=== PATIENT | female | born 1945 | race Caucasian/White ===

== ENCOUNTER → 2016-09-07 | Outpatient (CLI) | payer MEDICARE ==
--- NOTE | 2016-09-07 08:34 | US ---
EXAMINATION TYPE: US abdomen complete DATE OF EXAM: 09/07/2016 COMPARISON: NONE CLINICAL HISTORY: elevated liver enzymes R94.5. Patient stated Statin medication was discontinued 6 m onths ago. EXAM MEASUREMENTS: Liver Length: 12.2 cm Gallbladder Wall: 0.2 cm CBD: 0.4 cm Spleen: 9.1 cm Right Kidney: 11.4 x 7.1 x 4.5 cm Left Kidney: 11.0 x 5.2 x 5.6 cm Pancreas: Visualized portions are unremarkable. Liver: Mild coarsening of the hepatic echotexture. Gallbladder: wnl Evidence for sonographic Upton's sign: No CBD: wnl Spleen: wnl Right Kidney: No hydronephrosis or masses seen Left Kidney: No hydronephrosis or masses seen Upper IVC: wnl Abd Aorta: intimal wall thickening is noted at intervals throughout and into bilateral RODERICK, but size is wnl. IMPRESSION: Mild coarsened heterogenous echotexture of the hepatic parenchyma, which most commonly co rresponds to hepatic steatosis and limits evaluation for underlying hepatic masses.
== END | disposition home or self-care (01) ==
LOC: RADUSWWP 07:33
PROVIDERS: ATTEND Family Medicine
DX: R94.5 Abnormal results of liver function studies (principal)
CPT/HCPCS: 76700

== ENCOUNTER → 2016-09-08 | Outpatient (CLI) | payer MEDICARE ==
--- NOTE | 2016-09-08 15:36 | NM ---
EXAMINATION TYPE: NM hepatobiliary w EF DATE OF EXAM: 09/08/2016 COMPARISON: Ultrasound abdomen 09/07/2016 HISTORY: R 94.5, abnormal liver function tests TECHNIQUE: After the intravenous administration of 4.9 mCi Tc 99m Mebrofenin hepatobiliary scintigrap hy is performed. Immediate images post injection. FINDINGS: There is satisfactory initial accumulation of tracer by the liver. The gallbladder is visualized wit hin 30 minutes. The small bowel activity is noted within 10 minutes. At one hour 8 ounces of oral e nsure plus is given to mimic CCK and gallbladder ejection fraction is calculated at 73 %, in the norm al range. Therefore there is no scintigraphic evidence of cystic or common bile duct obstruction to suggest acute cholecystitis or gallbladder dyskinesia. IMPRESSION: Exam is within normal limits.
== END ==
LOC: RADNMMAIN 12:53
PROVIDERS: ATTEND Family Medicine
DX: R94.5 Abnormal results of liver function studies (principal)
CPT/HCPCS: 78226; A9537

== ENCOUNTER → 2017-05-07 | Outpatient (CLI) | payer MEDICARE ==
--- NOTE | 2017-05-08 12:16 | MM ---
Reason for exam: screening (asymptomatic). History: Patient is postmenopausal. Physical Findings: A clinical breast exam by your physician is recommended on an annual basis and results should be correlated with mammographic findings. MG 3D Screening Mammo W/Cad Bilateral CC and MLO view(s) were taken. No prior studies available for comparison. The breast tissue is heterogeneously dense. This may lower the sensitivity of mammography. No suspicious abnormality. ASSESSMENT: Negative, BI-RAD 1 RECOMMENDATION: Routine screening mammogram of both breasts in 1 year.
== END | disposition home or self-care (01) ==
LOC: RADMAMWWP 14:51
PROVIDERS: ATTEND Family Medicine
DX: Z12.31 Encounter for screening mammogram for malignant neoplasm of breast (principal)
CPT/HCPCS: 77063; 77067

== ENCOUNTER → 2017-12-18 | Outpatient (CLI) | payer MEDICARE ==
--- NOTE | 2017-12-18 17:38 | XR ---
EXAMINATION TYPE: XR chest 2V DATE OF EXAM: 12/18/2017 COMPARISON: Prior chest x-ray unavailable HISTORY: Pain in right hip, cough TECHNIQUE: Frontal and lateral views of the chest are obtained. FINDINGS: There is no focal air space opacity, pleural effusion, or pneumothorax seen. The cardiac silhouette size is within normal limits. The osseous structures are intact. There is eventration of the right hemidiaphragm. There is mild spinal curvature. The aorta is dense. Linear density at the l eft costophrenic angle may represent small focus of scar or atelectasis. Bronchial wall thickening is noted. IMPRESSION: There may be some minimal scarring or atelectasis, correlate for bronchitis, reactive ai rways disease.
--- NOTE | 2017-12-18 17:51 | XR ---
Right hip HISTORY: Pain in right hip 2 views of the right hip Subchondral cystic lucencies compatible geodes are suspected. Alignment and bone mineralization other malloy maintained. Mild loss of joint space. Vascular calcifications noted in the pelvis. IMPRESSION: Mild osteoarthritis suspected.
== END | disposition home or self-care (01) ==
LOC: RADXRMAIN 15:02
PROVIDERS: ATTEND Family Medicine
DX: R05 Cough (principal); M25.551 Pain in right hip
CPT/HCPCS: 71046; 73501

== ENCOUNTER → 2018-09-10 | Outpatient (CLI) | payer MEDICARE ==
--- NOTE | 2018-09-10 12:43 | XR ---
EXAM TYPE: LUMBAR SPINE X RAY SERIES COMPARISON: NONE HISTORY: Pain TECHNIQUE: 3 views are submitted. FINDINGS: Alignment is anatomic. The pedicles are intact. The transverse processes are intact. There is diff use osteopenia. Multilevel facet arthropathy seen and there is multilevel mild to moderate degenerati ve disc disease. Vascular calcifications noted. IMPRESSION: 1. Diffuse osteopenia with multilevel degenerative disc disease.
--- NOTE | 2018-09-10 12:44 | XR ---
EXAMINATION TYPE: XR Hip Complete LT DATE OF EXAM: 09/10/2018 COMPARISON: NONE HISTORY: Pain TECHNIQUE: 2 views submitted FINDINGS: There is no evidence of erosive change or acute fracture. Ossification along the greater trochanter l eft hip. Arthropathy of the hip. Osteitis pubis condensans noted. IMPRESSION: 1. No evidence of acute fracture or dislocation.
== END | disposition home or self-care (01) ==
LOC: RADXRMAIN 12:15
PROVIDERS: ATTEND Family Medicine
DX: M51.36 Other intervertebral disc degeneration, lumbar region (principal); M85.88 Other specified disorders of bone density and structure, other site; M25.552 Pain in left hip
CPT/HCPCS: 72100; 73502

== ENCOUNTER → 2019-10-24 | Outpatient (CLI) | payer MEDICARE ==
--- NOTE | 2019-10-28 11:10 | MM ---
Reason for exam: screening (asymptomatic). Last mammogram was performed 2 years and 6 months ago. History: Patient is postmenopausal. Physical Findings: A clinical breast exam by your physician is recommended on an annual basis and results should be correlated with mammographic findings. MG 3D Screening Mammo W/Cad Bilateral CC and MLO view(s) were taken. Prior study comparison: May 07, 2017, bilateral MG 3d screening mammo w/cad. The breast tissue is heterogeneously dense. This may lower the sensitivity of mammography. Benign bilateral oil cyst calcifications. No significant changes when compared with prior studies. ASSESSMENT: Negative, BI-RAD 1 RECOMMENDATION: Routine screening mammogram of both breasts in 1 year.
== END | disposition home or self-care (01) ==
LOC: RADMAMWWP 13:04
PROVIDERS: ATTEND Family Medicine
DX: Z12.31 Encounter for screening mammogram for malignant neoplasm of breast (principal)
CPT/HCPCS: 77063; 77067

== ENCOUNTER → 2023-11-12 | Outpatient (CLI) | payer MEDICARE ==
--- NOTE | 2023-11-14 09:42 | MM ---
Reason for Exam: Screening (asymptomatic). Last mammogram was performed 4 year(s) and 1 month(s) ago. Patient History: Menarche at age 15. First Full-Term at age 20. Postmenopausal. Risk Values: Kamini 5 year model risk: 1.1%. NCI Lifetime model risk: 2.2%. Prior Study Comparison: 05/07/2017 Bilateral Screening Mammogram, [facility]. 10/24/2019 Bilateral Screening Mammogram, [facility]. Tissue Density: There are scattered areas of fibroglandular density. Findings: Analyzed By CAD. There is no suspicious group of microcalcifications or new suspicious mass in either breast. Overall Assessment: Benign, BI-RAD 2 Management: Screening Mammogram of both breasts in 1 year. . Patient should continue monthly self-breast exams. A clinical breast exam by your physician is recommended on an annual basis. This exam should not preclude additional follow-up of suspicious palpable abnormalities. Note on Kamini scores and lifetime risk: 1. A Kamini score greater than 3% is considered moderate risk. If this is the case, consider specialist referral to assess eligibility for a risk reducing agent. 2. If overall lifetime risk for the development of breast cancer is 20% or higher, the patient may qualify for future screening with alternating mammogram and breast MRI. [facility], , 11/14/2023 9:38 AM. Electronically signed and approved by: Chuckie Figueredo M.D. Radiologis
== END | disposition home or self-care (01) ==
LOC: RADMAMWWP 14:09
PROVIDERS: ATTEND Family Medicine
DX: Z12.31 Encounter for screening mammogram for malignant neoplasm of breast
CPT/HCPCS: 77063; 77067

== ENCOUNTER → 2024-06-23 | Outpatient (CLI) | payer MEDICARE ==
--- NOTE | 2024-06-23 15:36 | XR ---
EXAMINATION TYPE: XR knee complete RT DATE OF EXAM: 06/23/2024 3:21 PM COMPARISON: None CLINICAL INDICATION: Female, 78 years old with history of M25.561 RIGHT KNEE PAIN; PHH, pain TECHNIQUE: 3 views FINDINGS: Mild degenerative spurring medial patellofemoral compartments. No significant joint effusion. No acut e fracture, subluxation, or lesions seen. IMPRESSION: Mild degenerative spurring medial and patellofemoral compartments. No acute osseous abnormality seen. [facility], , 06/23/2024 3:34 PM
== END | disposition home or self-care (01) ==
LOC: RADXRMAIN 15:05
PROVIDERS: ATTEND Family Medicine
DX: M17.11 Unilateral primary osteoarthritis, right knee (principal)